=== PATIENT | male | born 1965 | race American Indian/Alaskan Native ===

== ENCOUNTER 2019-11-11 19:29 | Emergency (ER) | payer BC ==
[2019-11-11 20:06] VITALS: BP 167/99
--- NOTE | 2019-11-11 21:34 | Emergency Department Report ---
Chief Complaint: Skin/Abscess/Foreign Body Stated Complaint: LUMP ON RT SIDE CHEST Time Seen by Provider: 11/11/19 21:35 - HPI History of Present Illness: 54 y o male presents with non tender lump on right breast x 4 days states he thinks he got bit No pain to touch He states he notivced it some years ago but it went away He denies fever, chills, n,v, cp, sob - ROS Review of Systems: as noted in hpi - Exam Vital Signs: Vital Signs 11/11/19 19:53 Temperature 98.7 F Pulse Rate 88 Respiratory 18 Rate Blood Pressure 167/99 O2 Sat by Pulse 98 Oximetry Physical Exam: BREAST: nontender 3-4 cm slightly red mass to mid breast, no nipple d/c MSE screening note: Focused history and physical exam performed. Due to findings the following was ordered: ED Disposition for MSE Clinical Impression: Breast mass in male Disposition: Z- MED SCREENING EXAM-LEFT Is pt being admited?: No Does the pt Need Aspirin: No Condition: Stable Instructions: Breast Mass (ED) Additional Instructions: Make sure to follow up with the primary care physician as discussed. If you have any worsening symptoms or develop new symptoms please return to ED immediately. Prescriptions: cephALEXin [Keflex] 500 mg PO Q12HR #14 cap Referrals: [facility] [Outside] - 3-[address] [facility] [place] [Outside] - 3-5 Days Forms: Work/School Release Form(ED) Time of Disposition: 21:52
== END 2019-11-11 22:27 | disposition left against medical advice (07) ==
LOC: ED 19:29
DX: N63.10 Unspecified lump in the right breast, unspecified quadrant (principal); I10 Essential (primary) hypertension
CPT/HCPCS: 99282